=== PATIENT | female | born 1940 | race Caucasian/White ===

== ENCOUNTER 2022-03-09 06:41 | Inpatient (IN) | payer MEDICARE ==
[2022-03-09] MEDS ORDERED: hydrALAZINE 20 MG/ML VIAL ONE (08:20)
[2022-03-09 08:40] LABS: #Basophils 0.1 thou/uL (0.0-0.2); #Lymphocytes 1.8 thou/uL (1.20-3.40); #Monocytes 0.7 thou/uL (0.11-0.59); #Neutrophils 6.8 thou/uL (1.40-6.50); %Basophils 0.9 % (0.0-1.0); %Eosinophils 0.4 % (0.0-10.0); %Lymphocytes 18.9 % (21.0-51.0); %Monocytes 7.5 % (0.0-10.0); %Neutrophils 72.3 % (42.0-75.0); Hemoglobin 14.3 g/dL (12.0-16.0); Mean Corpuscular HGB CONC 33.6 g/dL (32.0-36.0); Mean Corpuscular Hemoglobin 31.5 pg (27.0-31.0); Mean Corpuscular Volume 93.6 fL (78.0-98.0); Mean Platelet Volume 7.1 fL (7.4-10.4); Platelet Count 260 thou/uL (130-400); RBC Distribution Width 11.5 % (11.5-14.5); Red Blood Cell (RBC) Count 4.55 mill/uL (4.20-5.40); White Blood Cell (WBC) Count 9.4 thou/uL (4.8-10.8)
[2022-03-09 09:09] LABS: ALT (SGPT) 18 U/L (8-55); AST (SGOT) 20 U/L (5-34); Albumin 3.9 g/dL (3.4-4.8); Alkaline Phosphatase 76 U/L (40-110); Anion Gap 13 mmol/L (10-20); BUN (Urea Nitrogen) 17 mg/dL (9.8-20.1); Bilirubin, Total 0.3 mg/dL (0.2-1.2); Calc. Creatinine Clearance 0 mL/min (70-130); Calcium 9.5 mg/dL (7.8-10.44); Carbon Dioxide 23 mmol/L (23-31); Chloride 102 mmol/L (98-107); Globulin 3.9 g/dL (2.4-3.5); Glucose 106 mg/dL (83-110); Potassium 3.7 mmol/L (3.5-5.1); Protein, Total 7.8 g/dL (5.8-8.1); Sodium 134 mmol/L (136-145)
[2022-03-09] MEDS ORDERED: Aspirin Chewable 81 MG TAB ONE (09:51)
[2022-03-09 10:12] LABS: Bilirubin Negative (Negative); Blood, Urine Negative (Negative); Clarity Clear (Clear); Glucose, Urine (Dipstick) Normal (Negative); Ketone, Urine Negative (Negative); Leukocyte Negative Leu/uL (Negative); Nitrite Negative (Negative); Protein, Urine (Dipstick) Negative (Neg-Trace); Specific Gravity, Urine 1.014 (1.002-1.036); Urobilinogen Normal mg/dL (Less than 2); pH, Urine 7.5 (5.0-9.0)
[2022-03-09] MEDS ORDERED: Labetalol HCl 100 MG/20 ML VIAL SLOW IVP PRN (11:01)
[2022-03-09] MEDS ORDERED: hydrALAZINE 20 MG/ML VIAL SLOW IVP PRN (11:01)
[2022-03-09] MEDS ORDERED: Acetaminophen 325 MG TAB PO PRN (11:01)
[2022-03-09] MEDS ORDERED: Calcium Carbonate 500 MG ChewTAB PO PRN (11:01)
[2022-03-09] MEDS ORDERED: Acetaminophen 650 MG Suppository PR PRN (11:01)
[2022-03-09] MEDS ORDERED: Ondansetron ODT 4 MG TAB PO PRN (11:01)
[2022-03-09] MEDS ORDERED: Enoxaparin Sodium 40 MG/0.4 ML SYRINGE SC SCH (11:15)
[2022-03-09] MEDS ORDERED: Lorazepam 2 MG/ML VIAL SLOW IVP PRN (11:17)
[2022-03-09] MEDS ORDERED: Enoxaparin Sodium 40 MG/0.4 ML SYRINGE ONE (11:22)
[2022-03-09 12:06] LABS: Magnesium 1.9 mg/dL (1.6-2.6); Phosphorus 2.6 mg/dL (2.3-4.7)
[2022-03-09 12:09] LABS: Troponin I 0.031 ng/mL (< 0.028)
[2022-03-09 15:04] LABS: Troponin I 0.024 ng/mL (< 0.028)
[2022-03-09 15:08] LABS: Amphetamine Not Detected (NotDetected); Barbiturates Screen Not Detected (NotDetected); Benzodiazepine Screen Not Detected (NotDetected); Cocaine Metabolite Screen Not Detected (NotDetected); Methadone Not Detected (NotDetected); Methamphetamine Not Detected (NotDetected); Opiate Screen Not Detected (NotDetected); Oxycodone Screen Not Detected (NotDetected); Phencyclidine (PCP) Not Detected (NotDetected); THC/Cannabinoid Screen Not Detected (NotDetected); Tricyclic Screen Not Detected (NotDetected)
[2022-03-09 16:11] VITALS: BMI 28.0
[2022-03-09] MEDS: Levothyroxine Sodium 88 MCG TAB PO SCH (21:01)
[2022-03-09] MEDS: Bisoprolol Fumarate/HCTZ 5 mg/6.25 mg Tablet PO SCH (21:01)
[2022-03-09] MEDS: Atorvastatin Calcium 40 MG TAB PO SCH (21:01)
[2022-03-10 06:43] LABS: Hemoglobin A1c 5.4 % (4.0-6.0)
[2022-03-10 06:46] LABS: Anion Gap 11 mmol/L (10-20); BUN (Urea Nitrogen) 9 mg/dL (9.8-20.1); Calc. Creatinine Clearance 77 mL/min (70-130); Calcium 9.1 mg/dL (7.8-10.44); Carbon Dioxide 26 mmol/L (23-31); Chloride 101 mmol/L (98-107); Cholesterol 155 mg/dl (< 200 Desired); Glucose 104 mg/dL (83-110); HDL Cholesterol 51 mg/dL (>60 Neg Risk); LDL Cholesterol, Calculated 86 mg/dL; Potassium 3.3 mmol/L (3.5-5.1); Sodium 135 mmol/L (136-145); Triglycerides 91 mg/dL (Less than 150)
[2022-03-10] MEDS: Enoxaparin Sodium 40 MG/0.4 ML SYRINGE SC SCH (09:04)
[2022-03-10] MEDS: Aspirin 81 mg Enteric Coated Tablet PO SCH (09:04)
[2022-03-10] MEDS: Loratadine 10 MG TAB PO SCH (09:05)
[2022-03-10] MEDS ORDERED: Magnevist 469MG/ML 20 ML VIAL ONE (11:01)
[2022-03-10] MEDS ORDERED: levETIRAcetam 500 MG TAB PO SCH (11:45)
[2022-03-10] MEDS: Atorvastatin Calcium 40 MG TAB PO SCH (20:44)
[2022-03-10] MEDS: Bisoprolol Fumarate/HCTZ 5 mg/6.25 mg Tablet PO SCH (20:44)
[2022-03-10] MEDS: Levothyroxine Sodium 88 MCG TAB PO SCH (20:44)
[2022-03-10] MEDS: levETIRAcetam 500 MG TAB PO SCH (20:44)
[2022-03-11 05:33] LABS: #Basophils 0.1 thou/uL (0.0-0.2); #Eosinphils 0.2 thou/uL (0.0-0.7); #Lymphocytes 3.3 thou/uL (1.20-3.40); #Monocytes 0.8 thou/uL (0.11-0.59); #Neutrophils 3.5 thou/uL (1.40-6.50); %Basophils 1.4 % (0.0-1.0); %Eosinophils 2.6 % (0.0-10.0); %Lymphocytes 41.7 % (21.0-51.0); %Monocytes 9.5 % (0.0-10.0); %Neutrophils 44.7 % (42.0-75.0); Hemoglobin 13.6 g/dL (12.0-16.0); Mean Corpuscular HGB CONC 32.9 g/dL (32.0-36.0); Mean Corpuscular Hemoglobin 31.2 pg (27.0-31.0); Mean Corpuscular Volume 94.8 fL (78.0-98.0); Mean Platelet Volume 6.9 fL (7.4-10.4); Platelet Count 267 thou/uL (130-400); RBC Distribution Width 11.8 % (11.5-14.5); Red Blood Cell (RBC) Count 4.38 mill/uL (4.20-5.40); White Blood Cell (WBC) Count 7.8 thou/uL (4.8-10.8)
[2022-03-11 05:57] LABS: Anion Gap 12 mmol/L (10-20); BUN (Urea Nitrogen) 10 mg/dL (9.8-20.1); Calc. Creatinine Clearance 74 mL/min (70-130); Calcium 9.1 mg/dL (7.8-10.44); Carbon Dioxide 24 mmol/L (23-31); Chloride 101 mmol/L (98-107); Glucose 91 mg/dL (83-110); Potassium 3.2 mmol/L (3.5-5.1); Sodium 134 mmol/L (136-145)
[2022-03-11] MEDS ORDERED: Potassium Chloride 20 MEQ TAB PO SCH (07:00)
[2022-03-11] MEDS ORDERED: Electrolyte Replacement Protocol FS PRN (07:00)
[2022-03-11] MEDS: Enoxaparin Sodium 40 MG/0.4 ML SYRINGE SC SCH (09:06)
[2022-03-11] MEDS: levETIRAcetam 500 MG TAB PO SCH (09:06)
[2022-03-11] MEDS: Loratadine 10 MG TAB PO SCH (09:06)
[2022-03-11] MEDS: Aspirin 81 mg Enteric Coated Tablet PO SCH (09:06)
[2022-03-11 15:57] VITALS: BP 162/86; TEMP 97.2
== END 2022-03-11 17:28 | disposition home or self-care (01) | DRG 66 ==
LOC: ERS 06:41 → ERHOLD 10:53 → NEURO 15:08 → OBSVTOIN 03-10 16:04
PROVIDERS: ADMIT Internal Medicine; ATTEND Internal Medicine
DX: I63.9 Cerebral infarction, unspecified (principal); Z20.822 Contact with and (suspected) exposure to COVID-19; E03.9 Hypothyroidism, unspecified; E78.5 Hyperlipidemia, unspecified; I10 Essential (primary) hypertension; R56.9 Unspecified convulsions; R29.702 NIHSS score 2; J30.2 Other seasonal allergic rhinitis; Z98.890 Other specified postprocedural states; Z83.3 Family history of diabetes mellitus; Z79.899 Other long term (current) drug therapy; Z79.890 Hormone replacement therapy
CPT/HCPCS: 36415; 70450; 70553; 71045; 80048; 80053; 80061; 80306; 81003; 83036; 83735; 84100; 84146; 84443; 84484; 85025; 87086; 93005; 93306; 93880; 95712; 95819; 95957; 96372; 96374; A9579; G0378; J0360; J1650; U0003; U0005